=== PATIENT | male | born 1940 | race Caucasian/White ===

== ENCOUNTER 2019-11-29 14:57 | Inpatient (IN) | payer OTHER ==
[~2019-11-29] VITALS: Ht 170.2 cm; Wt 68.0 kg
[2019-12-07] MEDS ORDERED: COZAAR25 MG PO (10:28)
[2019-12-07] MEDS ORDERED: SYNTROID (10:31)
[2019-12-07] MEDS ORDERED: SIMVAST PO (10:32)
[2019-12-07] MEDS ORDERED: VITAMIN B-121000 MC2 SL (10:33)
[2019-12-07] MEDS ORDERED: NEXIUM 24HR20 M1 PO (10:33)
[2019-12-07] MEDS ORDERED: GLIPIZIDE XL2.5 MG PO (10:37)
[2019-12-07] MEDS ORDERED: GLIPIZIDE (10:37)
[2019-12-13] MEDS ORDERED: LOSARTAN POTAS100 MG PO (10:17)
[2019-12-13] MEDS ORDERED: GLIPIZIDE XL5 MG PO (10:17)
[2019-12-13] MEDS ORDERED: SIMVASTATIN20 MG PO (10:19)
[2019-12-13] MEDS ORDERED: DOXAZOSIN MESYLA4 MG PO (10:20)
[2019-12-13] MEDS ORDERED: LEVO-T25 MCG PO (10:20)
[2020-01-12] MEDS ORDERED: COZAAR100 MG PO (10:07)
[2020-01-12] MEDS ORDERED: PROTONIX40 MG PO (10:08)
[2020-01-12] MEDS ORDERED: CARDURA PO (10:10)
[2020-01-12] MEDS ORDERED: VITAMIN D PO (10:10)
== END 2019-12-15 11:29 | disposition home or self-care (01) | DRG 331 ==
LOC: O/R 12-12 09:00 → SURH 12-12 09:00 → EDBD 12-12 09:15 → SURH 12-12 09:15
PROVIDERS: ADMIT Surgery; ATTEND Surgery
PROC: 07BB3ZZ Excision of Mesenteric Lymphatic, Percutaneous Approach (ICD-10-PCS; 2019-12-12)
PROC: 0DBH4ZZ Excision of Cecum, Percutaneous Endoscopic Approach (ICD-10-PCS; principal; 2019-12-12 10:00)
DX: C18.0 Malignant neoplasm of cecum (principal); I10 Essential (primary) hypertension; E11.9 Type 2 diabetes mellitus without complications

== ENCOUNTER 2020-01-16 07:00 | Day surgery (SDC) | payer OTHER ==
[~2020-01-16 07:00] MED LIST: CARDURA PO; COZAAR100 MG PO; COZAAR25 MG PO; DOXAZOSIN MESYLA4 MG PO; GLIPIZIDE; GLIPIZIDE XL2.5 MG PO; GLIPIZIDE XL5 MG PO; LEVO-T25 MCG PO; LOSARTAN POTAS100 MG PO; NEXIUM 24HR20 M1 PO; PROTONIX40 MG PO; SIMVAST PO; SIMVASTATIN20 MG PO; SYNTROID; VITAMIN B-121000 MC2 SL; VITAMIN D PO
[2020-01-16] MEDS ORDERED: ULTRACET PO (10:50)
== END 2020-01-16 16:35 | disposition home or self-care (01) ==
LOC: CIR.AMB 07:00
PROVIDERS: ATTEND Surgery
DX: C18.0 Malignant neoplasm of cecum (principal)
CPT/HCPCS: 36561; C1751

== ENCOUNTER 2020-02-03 02:55 | Inpatient (IN) | payer OTHER ==
[~2020-02-03] VITALS: Ht 213.4 cm; Wt 5.0 kg
[~2020-02-03 02:55] MED LIST changes: +ULTRACET PO
== END 2020-02-14 10:02 | disposition home or self-care (01) | DRG 394 ==
LOC: ER 02:55 → SURH 09:00 → SEC-K 09:00 → SURH 15:06
PROVIDERS: ADMIT Internal Medicine Cardiovascular Disease; ATTEND Internal Medicine Cardiovascular Disease
PROC: 8E0ZXY6 Isolation (ICD-10-PCS; 2020-02-03)
PROC: BW21Y0Z Computerized Tomography (CT Scan) of Abdomen and Pelvis using Other Contrast, Unenhanced and Enhanced (ICD-10-PCS; principal; 2020-02-04)
PROC: 02HV33Z Insertion of Infusion Device into Superior Vena Cava, Percutaneous Approach (ICD-10-PCS; 2020-02-06)
PROC: 3E0436Z Introduction of Nutritional Substance into Central Vein, Percutaneous Approach (ICD-10-PCS; 2020-02-06)
PROC: B54MZZZ Ultrasonography of Right Upper Extremity Veins (ICD-10-PCS; 2020-02-10)
DX: K91.89 Other postprocedural complications and disorders of digestive system (principal); J90 Pleural effusion, not elsewhere classified; K92.1 Melena; K52.9 Noninfective gastroenteritis and colitis, unspecified; I10 Essential (primary) hypertension; N28.9 Disorder of kidney and ureter, unspecified; N28.1 Cyst of kidney, acquired; E03.8 Other specified hypothyroidism; E11.9 Type 2 diabetes mellitus without complications; Z79.4 Long term (current) use of insulin; Z03.818 Encounter for observation for suspected exposure to other biological agents ruled out

== ENCOUNTER 2020-11-20 08:00 | Day surgery (SDC) | payer OTHER | END 2020-11-20 10:10 | disposition home or self-care (01) | LOC: AMB-ENDOS 08:00 | PROVIDERS: ATTEND Surgery | DX: D12.5 Benign neoplasm of sigmoid colon (principal); Z20.822 Contact with and (suspected) exposure to COVID-19; K64.8 Other hemorrhoids ==

== ENCOUNTER 2020-12-20 06:28 | Day surgery (SDC) | payer OTHER ==
[2020-12-20] MEDS ORDERED: ULTRACET PO (08:35)
== END 2020-12-20 10:09 | disposition home or self-care (01) ==
LOC: CIR.AMB 06:28
PROVIDERS: ATTEND Surgery
DX: C18.0 Malignant neoplasm of cecum (principal); Z20.822 Contact with and (suspected) exposure to COVID-19